=== PATIENT | male | born 1955 | race Caucasian/White ===

== ENCOUNTER → 2018-01-03 | Outpatient (CLI) | payer OTHER ==
--- NOTE | 2018-01-03 18:20 | US ---
EXAM DESCRIPTION: Abdomen,Complete CLINICAL HISTORY: ENCOUNTER FOR SCREENING FOR OTHER DISORDER COMPARISON: None Available. TECHNIQUE: Complete abdominal ultrasound FINDINGS: Visualized portions of the pancreas are unremarkable. No peripancreatic fluid. Bowel gas obscures some areas. Aortic diameter is measured at 2.3 cm proximally, 2 cm in the midportion and 2.1 cm distally. Common iliac arteries are normal in caliber. Normal appearance of the inferior vena cava. Liver parenchyma is homogeneous in texture with normal echogenicity. No liver mass or intrahepatic bile duct dilatation. No liver surface irregularity. Normal appearance of hepatic veins and portal vein. Liver length is increased at approximately 20 cm. Gallbladder appears normal with no intraluminal stones. No gallbladder wall thickening. Common bile duct is normal in caliber measuring 4.0 mm. The right kidney measures 11.9 cm in length. Normal renal cortical echogenicity. The renal cortical thickness appears normal. No right renal mass, shadowing stone or cyst. There is no hydronephrosis. Echogenic linear focus in the lower pole appears benign. Spleen is normal in size. No focal splenic lesion. The left kidney measures 11.6 cm in length. Normal renal cortical echogenicity. The renal cortical thickness appears normal. No left renal mass, shadowing stone or cyst. There is no hydronephrosis. IMPRESSION: No diagnostic abnormality is identified on sonographic evaluation of the upper abdomen. Electronically signed by: Aydin Senior MD 01/03/2018 6:19 PM CDT
== END ==
LOC: US 15:14
PROVIDERS: ATTEND Family Medicine
DX: Z13.89 Encounter for screening for other disorder (principal)

== ENCOUNTER → 2018-02-26 | Outpatient (CLI) | payer OTHER | LOC: RESP 15:31 | PROVIDERS: ATTEND Physician Assistant | DX: I49.3 Ventricular premature depolarization (principal) ==

== ENCOUNTER 2019-03-01 07:25 | Day surgery (SDC) | payer OTHER ==
[~2019-03-01 07:25] MED LIST: LACTATED RINGERS 1,000 ML ONE; LIDOCAINE 1% 10 ML VIAL INJ ONE; PROPOFOL 200 MG/20 ML VIAL IV ONE
[2019-03-01] MEDS ORDERED: LACTATED RINGERS 1,000 ML IVS ONE (10:30)
--- NOTE | 2019-03-01 13:28 | OP ---
DATE OF PROCEDURE: 03/01/19 PREOPERATIVE DIAGNOSIS: 1. Screening colonoscopy. POSTOPERATIVE DIAGNOSIS: 1. Colonic polyps. PROCEDURE: 1. Colonoscopy with snare biopsy times two and forceps excision times two. SURGEON: Thanh Silver MD ANESTHESIA: General. FINDINGS: On the initial insert at 10 cm, there were two fair sized polyps, about 4 mm at least on two separate folds in a similar area about 10 to 12 cm. They were both taken and retrieved. At 20 cm, there were two small polyps that were excised with biopsy forceps. A 4 mm polyp was excised at the cecum with a snare. The anus on retroflexion had a small, firm polypoid lesion that was excised with forceps. COMPLICATIONS: None. ESTIMATED BLOOD LOSS: None. CONDITION: Stable. PLAN: Discharge. INDICATION: As stated. PROCEDURE: Digital rectal exam was normal. The colonoscope was inserted. Near the splenic flexure, it was quite difficult to get around the corner. We did rub the mucosa a bit, but it was examined on the way in and again upon retrieval and there was just light erythematous, no evidence of a wall injury. We finally got to the cecum and again noticed a polyp on a fold there. It was removed with a snare. On further withdrawal, at 20 cm, we saw two hyperplastic appearing polyps that were both excised with forceps. The two at 10 cm had already been removed on insertion. On retroflexion there was a small lesion about 1 to 1.5 mm, a little firm, kind of pyramid-like in the distal anal canal and this was excised with forceps. The patient tolerated the procedure and was taken to Recovery to be discharged. #[id number] [facility]
[2019-03-01 13:35] VITALS: BP 160/97; TEMP 97.1; O2SAT 100
== END 2019-03-01 13:27 | disposition home or self-care (01) ==
LOC: AMB 07:25
PROVIDERS: ATTEND Surgery
DX: Z12.11 Encounter for screening for malignant neoplasm of colon (principal); K62.1 Rectal polyp; D12.0 Benign neoplasm of cecum; K63.5 Polyp of colon; F17.210 Nicotine dependence, cigarettes, uncomplicated; Z79.82 Long term (current) use of aspirin
CPT/HCPCS: 00812; 45380; 45385; J3490; J7120

== ENCOUNTER 2020-06-05 05:47 | Day surgery (SDC) | payer OTHER ==
[2020-06-05] MEDS ORDERED: LACTATED RINGERS 1,000 ML ONE (07:05)
[2020-06-05] MEDS ORDERED: BUPIVACAINE 0.25% W/EPI 50 ML VIAL INJ ONE ×2 (09:56→10:54)
[2020-06-05] MEDS ORDERED: SODIUM BICARBONATE VIAL 50 MEQ/50 ML VIAL ONE (09:56)
[2020-06-05] MEDS ORDERED: MIDAZOLAM SYRUP 2 MG/ML (10ML) UD ONE (10:45)
[2020-06-05] MEDS ORDERED: SODIUM BICARBONATE VIAL 50 MEQ/50 ML VIAL IV ONE (10:53)
[2020-06-05 11:27] VITALS: TEMP 98.1
[2020-06-05 11:59] VITALS: BP 127/85; O2SAT 99
--- NOTE | 2020-06-05 14:08 | OP ---
DATE OF PROCEDURE: 06/05/20 PREOPERATIVE DIAGNOSIS: 1. Subcutaneous lesion, left upper cheek at orbit. POSTOPERATIVE DIAGNOSIS: 1. Subcutaneous lesion consistent with cyst, left upper cheek/orbital area. PROCEDURE: 1. Excision of subcutaneous lesion, cheek/left eye, 1.5 cm. SURGEON: Thanh Silver MD ANESTHESIA: Local with p.o. Versed. COMPLICATIONS: None. ESTIMATED BLOOD LOSS: None. FINDINGS: Consistent with an epidermal inclusion cyst. A shiny capsule with cheesy material inside. PLAN: Discharge. INDICATION: This is a man with a lesion on his left eye. It is becoming larger and larger. On examining it, it appeared amenable to local excision, but with OR light and instrumentation, so he was brought to the Operating Suite. PROCEDURE: He was given p.o. Versed. He was prepped and draped in sterile fashion. He tolerated the local incision very nicely. We made a small incision over the lesion consistent with natural smile line. The tissue was taken down and we identified the lesion. It was shiny white. We dissected it out, around and down to the underlying musculature. We it off of that sharply and the lesion was removed entirely. He tolerated the procedure. Minimal hemostasis was necessary. It closed with a single 4-0 Monocryl. Steri-Strip was applied. He was then taken to Recovery to be discharged. #[id number] cc: William Medley MD [facility]
== END 2020-06-05 11:55 | disposition home or self-care (01) ==
LOC: AMB 05:47
PROVIDERS: ATTEND Surgery
DX: L72.0 Epidermal cyst (principal); F17.200 Nicotine dependence, unspecified, uncomplicated
CPT/HCPCS: 11442; J7120